=== PATIENT | female | born 1995 | race African-American/Black ===

== ENCOUNTER 2016-10-22 12:54 | Emergency (ER) | payer OTHER | END 2016-10-22 13:10 | disposition home or self-care (01) | LOC: ER 12:54 | DX: J40 Bronchitis, not specified as acute or chronic (principal); J06.9 Acute upper respiratory infection, unspecified; J32.9 Chronic sinusitis, unspecified; F17.210 Nicotine dependence, cigarettes, uncomplicated | CPT/HCPCS: 99282 ==